=== PATIENT | male | born 1980 | race Caucasian/White ===

== ENCOUNTER 2017-11-17 20:02 | Emergency (ER) | payer OTHER ==
[~2017-11-17] VITALS: Ht 165.1 cm; Wt 121.6 kg
[~2017-11-17 20:02] MED LIST: AUGMENTIN875 MG PO; MOBIC7.5 MG PO; NOHOMEMEDS; NORCO 5/3251 TABLET PO; TRAMADOL HCL50 MG PO; ZYPREXA10 MG PO
[2017-11-17 20:18] VITALS: BP 145/95
[2017-11-17] MEDS ORDERED: MOTRIN800 MG PO ×2 (21:19→21:25)
[2017-11-17] MEDS ORDERED: NORCO 5/3251 TABLET PO (21:19)
== END 2017-11-17 21:35 | disposition home or self-care (01) ==
LOC: EME 20:02
DX: S46.912A Strain of unspecified muscle, fascia and tendon at shoulder and upper arm level, left arm, initial encounter (principal); W18.30XA Fall on same level, unspecified, initial encounter; F17.200 Nicotine dependence, unspecified, uncomplicated
CPT/HCPCS: 73030; 99281; 99284

== ENCOUNTER 2018-02-01 02:00 | Emergency (ER) | payer OTHER ==
[~2018-02-01] VITALS: Ht 162.6 cm; Wt 119.2 kg
[~2018-02-01 02:00] MED LIST changes: +MOTRIN800 MG PO
[2018-02-01 02:06] VITALS: BP 154/107
[2018-02-01] MEDS ORDERED: NORCO 10/3251 TABLET PO (03:47)
[2018-02-01] MEDS ORDERED: NAPROSYN500 MG PO (03:47)
== END 2018-02-01 03:56 | disposition home or self-care (01) ==
LOC: EME 02:00
DX: S46.912A Strain of unspecified muscle, fascia and tendon at shoulder and upper arm level, left arm, initial encounter (principal); X50.0XXA Overexertion from strenuous movement or load, initial encounter; F17.200 Nicotine dependence, unspecified, uncomplicated
CPT/HCPCS: 73030; 99281; 99283